=== PATIENT | female | born 1960 | race Caucasian/White ===

== ENCOUNTER 2023-04-03 12:26 | Emergency (ER) | payer OTHER, SELFPAY ==
[2023-04-03 12:36] VITALS: BP 204/122
--- NOTE | 2023-04-03 13:38 | ED.GENMED ---
Addendum entered and electronically signed by Fernando Ulrich DO 04/03/23 16:12:
Discussed with radiology. Discussed with neurosurgery. MRI reviewed by those specialists. MRI report reviewed. Neurosurgery recommends transfer to [facility]. Case was discussed with Dr. Mistry at [facility].
Excepted in transfer. Patient is currently stable.
Original Note:
History of Present Illness
General
Chief Complaint: Weakness
Source: patient and spouse
Exam Limitations: none
Time Seen by Provider: 04/03/23 13:03
Travel History
Have you had any contact with someone who has COVID-19?: No
Do you have any symptoms of coronavirus? Fever > 100 degrees, chills, cough, shortness of breath, sore throat, loss of taste or smell, muscle aches, or headache?: No
History of Present Illness
History of Present Illness:
62-year-old female who presents with progressive balance problems and difficulty using her arms. She states her right arm seems worse that she has difficulty writing and difficulty holding a cup of coffee. She states her symptoms started since
December but they were sick with influenza and suspected it was related to being sick. The patient states his symptoms have progressed over the last 2 weeks. She is having difficulty walking now. She has to hold on and always feels like she is on
a ship. 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 See attached CT report. Patient denies chest pain or shortness of breath. No trauma
Past History
Past History
ED Past Medical History: Other
ED Past Surgical History: Gynecological
Phy Exam
Physical Exam
Physical Exam:
CONSTITUTIONAL Patient alert and oriented to person, place and time. Well-appearing. Vital signs reviewed.
HEAD atraumatic, normocephalic.
EYES eyelids normal to inspection, Pupils equally round and reactive to light, Extraocular muscles intact, Conjunctiva normal, Sclera normal.
NECK normal range of motion, Trachea midline, no jugular venous distention.
RESPIRATORY CHEST No respiratory distress noted, Chest expansion equal, Bilateral breath sounds clear.
CARDIOVASCULAR regular rate and rhythm, Heart sounds normal.
ABDOMEN abdomen nontender, Bowel sounds normal. No distention.
BACK normal inspection, no obvious deformities
UPPER EXTREMITY range of motion normal, Motor strength normal, no cyanosis, no edema.
LOWER EXTREMITY range of motion normal, Motor strength normal, no cyanosis, no edema.
NEURO Speech normal, No focal motor deficits, Franklin coma scale 15, Memory normal, Cranial Nerves intact to screening exam. No pronator drift. She does have tremulousness and some mild ataxia to the right upper and right lower extremity with
some rigidity during exam
SKIN skin warm, dry, and normal in color.
PSYCHIATRIC patient oriented to person place and time, Normal affect.
Course
Orders/Labs/Results
Orders:
Orders
04/03/23 13:54
MRI Brain [MR Brain W/o & With Contrast] Urgent
Comment:
Reason For Exam: R cerebellar mass, RUE ataxia
Recent pill cam endoscopy?: No
04/03/23 14:00
Complete Blood Count/With Diff Urgent
Comprehensive Metabolic Panel Urgent
Abnormal Lab Results
04/03/23
14:00
MCHC 32.9 L g/dL
(33.0-37.0)
MPV 10.9 H fL
(7.4-10.4)
Absolute Lymphs (auto) 4.2 H 10^3/uL
(1.2-3.4)
Neutrophils % 31.6 L %
(42.2-75.2)
Lymphocytes % 57.2 H %
(20.5-51.1)
AST 40 H U/L
(14-36)
ALT 37 H U/L
(0-35)
04/03/23 14:00
04/03/23 14:00
Vital Signs
Initial and Last Documented VS:
Initial Vital Signs
Temp Pulse Resp BP Pulse Ox
98.1 F 83 18 204/122 97
04/03/23 12:36 04/03/23 12:36 04/03/23 12:36 04/03/23 12:36 04/03/23 12:36
Last Documented Vital Signs
Temp Pulse Resp BP Pulse Ox
98.1 F 83 18 204/122 97
04/03/23 12:36 04/03/23 12:36 04/03/23 12:36 04/03/23 12:36 04/03/23 12:36
MDM/Problems Addressed
MDM/Problems Addressed:
Brain mass
*Radiology
Radiology exam reviewed: preliminary read by ED provider (Cerebellar abnormality)
*Pulse Oximetry
Patient hypoxic: no
*Tent Finisher Interpretation
Rate: normal
Interpretation: normal
Rhythm: sinus
*Critical Care Note
Total Time (30-74mins, 75-104mins- exclusive of procedures): 30 minutes
Data Reviewed
Review of Other/Old Records Reveals: Radiology Studies (Outpatient CT scan from yesterday was reviewed showing a right cerebellar mass)
Source: patient and spouse
Further Testing Considered But Not Given:
Considered CT chest abdomen and pelvis to rule out metastatic lesion but will defer
Patient Management
Discussion with other providers: Mailroom Clerk (Case discussed with neurology as well as neurosurgery. Proceed with MRI)
ED Attending Note
-
Portions of this chart may have been created with voice recognition software.� Occasional wrong word or��sound alike� substitutions may have occurred due to the inherent limitations of voice recognition software.
Discharge Plan
Departure
Patient Disposition: Admit
Date of Disposition: 04/03/23
Time of Disposition: 15:27
Admit to: Med/Surg
Presentation/result/management discussed w/ accepting MD/DO: Hospitalist
Patient with high blood pressure during this ER visit?: Yes
Discharge Problem:
Cerebellar mass
Prescriptions:
No Action
acetaminophen [acetaminophen] 325 mg tablet
650 mg PO Q4HPRN PRN (Reason: mild pain) Qty: 1 0RF
ibuprofen 200 mg tablet
400 - 600 mg PO Q6HPRN PRN (Reason: moderate pain) Qty: 1 0RF
oxycodone 5 mg tablet
5 mg PO Q4HPRN PRN (Reason: breakthrough/severe pain) Qty: 7 0RF
Referrals:
Stacy Sommer CRNP [Family Provider] -
Interventions
Interventions:
*Risk Screen - Suicide Last Done: 04/03/23 12:36
*General Assessment Last Done: 04/03/23 12:36
*Neglect/Abuse Screening Last Done: 04/03/23 12:36
ED- Fall Risk Assessment Last Done: 04/03/23 13:06
*ED COVID-19 Vaccine History Last Done: 04/03/23 12:36
ED- Cardiac Assessment Last Done: 04/03/23 13:06
ED- Neurological Assessment Last Done: 04/03/23 13:06
ED- Pulmonary Assessment Last Done: 04/03/23 13:06
[2023-04-03 14:07] LABS: % Basophils 0.8 % (0-2); % Eosinophils 2.7 % (0-6); % Immature Granulocytes 0.3 % (0-0.5); % Lymphocytes 57.2 % (20.5-51.1); % Monocytes 7.4 % (1.7-9.3); % Neutrophils 31.6 % (42.2-75.2); Absolute Basophils 0.1 10^3/uL (0-0.2); Absolute Eosinophils 0.2 10^3/uL (0-0.7); Absolute Lymphocytes 4.2 10^3/uL (1.2-3.4); Absolute Monocytes 0.5 10^3/uL (0.1-0.6); Absolute Neutrophils 2.3 10^3/uL (1.4-6.5); Hematocrit 41.9 % (37.0-47.0); Hemoglobin 13.8 g/dL (12.0-16.0); Mean Corp Hgb Conc. 32.9 g/dL (33.0-37.0); Mean Corpuscular Hgb 28.3 pg (27.0-31.0); Mean Platelet Volume 10.9 fL (7.4-10.4); Nucleated Red Blood Cells % 0 %; Platelet Count 269 10^3/uL (130-400); Red Blood Cell Count 4.87 10^6/uL (4.20-5.40); Red Cell Dist. Width 13.2 % (11.5-14.5); White Blood Cell Count 7.3 10^3/uL (4.8-10.8)
[2023-04-03 14:28] LABS: ALT (SGPT) 37 U/L (0-35); AST (SGOT) 40 U/L (14-36); Albumin 4.3 g/dl (3.5-5.0); Alkaline Phosphatase 88 U/L (38-126); Blood Urea Nitrogen 14 mg/dl (7-17); Calcium 9.6 mg/dl (8.4-10.2); Carbon Dioxide 27 mmol/L (22-30); Chloride 104 mmol/L (98-107); Glucose 92 mg/dl (70-99); Potassium 4.4 mmol/L (3.5-5.1); Sodium 137 mmol/L (135-145); eGFR > 60.00
[2023-04-03 15:44] VITALS: BP 157/84
--- NOTE | 2023-04-03 16:09 | ED.GENMED ---
History of Present Illness
General
Chief Complaint: Weakness
Time Seen by Provider: 04/03/23 13:03
Travel History
Have you had any contact with someone who has COVID-19?: No
Do you have any symptoms of coronavirus? Fever > 100 degrees, chills, cough, shortness of breath, sore throat, loss of taste or smell, muscle aches, or headache?: No
Past History
Past History
ED Past Medical History: Other
ED Past Surgical History: Gynecological
Course
Orders/Labs/Results
Orders:
Orders
04/03/23 13:54
MRI Brain [MR Brain W/o & With Contrast] Urgent
Comment:
Reason For Exam: R cerebellar mass, RUE ataxia
Recent pill cam endoscopy?: No
04/03/23 14:00
Complete Blood Count/With Diff Urgent
Comprehensive Metabolic Panel Urgent
Abnormal Lab Results
04/03/23
14:00
MCHC 32.9 L g/dL
(33.0-37.0)
MPV 10.9 H fL
(7.4-10.4)
Absolute Lymphs (auto) 4.2 H 10^3/uL
(1.2-3.4)
Neutrophils % 31.6 L %
(42.2-75.2)
Lymphocytes % 57.2 H %
(20.5-51.1)
AST 40 H U/L
(14-36)
ALT 37 H U/L
(0-35)
04/03/23 14:00
04/03/23 14:00
Vital Signs
Initial and Last Documented VS:
Initial Vital Signs
Temp Pulse Resp BP Pulse Ox
98.1 F 83 18 204/122 97
04/03/23 12:36 04/03/23 12:36 04/03/23 12:36 04/03/23 12:36 04/03/23 12:36
Last Documented Vital Signs
Temp Pulse Resp BP Pulse Ox
98.1 F 76 18 157/84 97
04/03/23 12:36 04/03/23 15:44 04/03/23 12:36 04/03/23 15:44 04/03/23 15:44
ED Attending Note
-
Portions of this chart may have been created with voice recognition software.� Occasional wrong word or��sound alike� substitutions may have occurred due to the inherent limitations of voice recognition software.
Discharge Plan
Departure
Patient Disposition: Acute Care Hospital
Date of Disposition: 04/03/23
Time of Disposition: 15:27
Admit to: Med/Surg
Patient with high blood pressure during this ER visit?: Yes
Discharge Problem:
Cerebellar mass
Prescriptions:
No Action
cholecalciferol (vitamin D3) 1,250 mcg (50,000 unit) capsule
1,250 mcg PO SUTH
Airborne Gummy 250-11.66 mg Tablet,Chewable
2 tab PO DAILY
Probiotic
2 gummy PO DAILY
Referrals:
Stacy Sommer CRNP [Family Provider] -
Interventions
Interventions:
*Risk Screen - Suicide Last Done: 04/03/23 12:36
*General Assessment Last Done: 04/03/23 12:36
*Neglect/Abuse Screening Last Done: 04/03/23 12:36
ED- Fall Risk Assessment Last Done: 04/03/23 13:06
*ED COVID-19 Vaccine History Last Done: 04/03/23 12:36
ED- Cardiac Assessment Last Done: 04/03/23 13:06
ED- Neurological Assessment Last Done: 04/03/23 13:06
ED- Pulmonary Assessment Last Done: 04/03/23 13:06
[2023-04-03 17:25] VITALS: BMI 48.0
[2023-04-03 19:36] VITALS: BP 183/96
== END 2023-04-03 19:52 | disposition short-term general hospital (02) ==
LOC: EMR 12:26
PROVIDERS: EMERGENCY PHYSICIAN Emergency Medicine; FAMILY PHYSICIAN Nurse Practitioner Family
DX: G93.9 Disorder of brain, unspecified (principal); R03.0 Elevated blood-pressure reading, without diagnosis of hypertension
CPT/HCPCS: 99291; 70553; 80053; 85025; A9575

== ENCOUNTER 2023-05-03 19:10 | Inpatient (IN) | payer OTHER, SELFPAY ==
[2023-05-03] VITALS (9 sets, daily range): BP systolic 97–197; BP diastolic 53–102; BMI 46.8; BMI 46.1
[2023-05-03 14:55] LABS: % Basophils 0.9 % (0-2); % Eosinophils 6.1 % (0-6); % Immature Granulocytes 0.1 % (0-0.5); % Monocytes 8.9 % (1.7-9.3); Absolute Basophils 0.1 10^3/uL (0-0.2); Absolute Eosinophils 0.5 10^3/uL (0-0.7); Absolute Lymphocytes 3.9 10^3/uL (1.2-3.4); Absolute Monocytes 0.7 10^3/uL (0.1-0.6); Absolute Neutrophils 2.7 10^3/uL (1.4-6.5); Hematocrit 39.3 % (37.0-47.0); Mean Corp Hgb Conc. 33.1 g/dL (33.0-37.0); Mean Corpuscular Hgb 28.6 pg (27.0-31.0); Mean Corpuscular Volume 86.6 fL (81.0-99.0); Mean Platelet Volume 10.5 fL (7.4-10.4); Nucleated Red Blood Cells % 0 %; Platelet Count 252 10^3/uL (130-400); Red Blood Cell Count 4.54 10^6/uL (4.20-5.40); Red Cell Dist. Width 12.9 % (11.5-14.5); White Blood Cell Count 7.9 10^3/uL (4.8-10.8)
[2023-05-03 15:08] LABS: ALT (SGPT) 169 U/L (0-35); AST (SGOT) 120 U/L (14-36); Albumin 4.3 g/dl (3.5-5.0); Alkaline Phosphatase 106 U/L (38-126); Blood Urea Nitrogen 16 mg/dl (7-17); Calcium 9.8 mg/dl (8.4-10.2); Carbon Dioxide 26 mmol/L (22-30); Chloride 105 mmol/L (98-107); Estimated Creatinine Clearance 104 ml/min; Glucose 113 mg/dl (70-99); Potassium 4.1 mmol/L (3.5-5.1); Sodium 138 mmol/L (135-145); Total Bilirubin 0.8 mg/dl (0.2-1.3); eGFR > 60.00
--- NOTE | 2023-05-03 15:21 | ED.GENMED ---
History of Present Illness
General
Chief Complaint: Weakness
Source: patient, records and spouse
Exam Limitations: none
Time Seen by Provider: 05/03/23 14:21
Nursing documentation reviewed up to this point in time: agreed with
Travel History
Have you had any contact with someone who has COVID-19?: No
Do you have any symptoms of coronavirus? Fever > 100 degrees, chills, cough, shortness of breath, sore throat, loss of taste or smell, muscle aches, or headache?: No
History of Present Illness
History of Present Illness:
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
over the past 4 days; the symptoms in the setting of recent flulike illness. Patient was notably seen in this emergency room last month presented reportedly 2-week history of with difficulty with her balance, right arm weakness/clumsiness. Found
to have cystic mass in the right cerebellum on CT ultimately had an MRI and ultimately after consultation with neurosurgery was transferred to [facility] and she was admitted there from 05/01 until 05/08; patient says she was told that
not only did she have a cystic mass which she also had tiny area of hemorrhage; she says that she was ultimately discharged with plan for physical therapy as an outpatient and that symptoms had improved significantly during her hospitalization at
[place].
For the past 2 weeks patient says she has been ill she says that she has had flulike illness that she describes congestion, cough, fatigue. She says that it has been a hacking but nonproductive cough. She has not had any shortness of breath. No
chest pain. Denies fever. She says she tested her cell for COVID and it was negative. Saturday she said she had some nausea and vomiting associated with this hacking cough. About 4 days ago in the setting of this viral illness she says that she
had return of these symptoms that she initially presented for in March that she describes feeling weakness in the right arm and the right leg. She says she feels clumsy with her extremities on the right. She says that she has been having these
episodes lasting usually about 30 seconds at a time where she has involuntary 'tremors' of her right leg and even her right arm occasionally. She says that she has had worsening headache over that period of time with a frontal headache which seems
to improve with decongestants but also an occipital headache which is not responding to [id number] treatments. She says that she has a visiting nurse that came out today and after discussion with visiting nurse and her team at [facility]
[place] she was ultimately referred to the emergency room to be assessed.
Past History
Past History
ED Past Medical History: Other
ED Past Surgical History: Gynecological
Review of Systems
Review of Systems
All Other Systems: ROS reviewed and negative except as documented in HPI and ROS
Constitutional: Reports fatigue; Denies fever or chills
EENT: Reports runny nose; Denies sore throat
Respiratory: Reports cough; Denies trouble breathing
Cardiac: Denies chest pain, diaphoresis or palpitations
ABD/GI: Reports nausea and vomiting; Denies abdominal pain or diarrhea
: Denies flank pain
Musculoskeletal: Denies neck pain or back pain
Neurological: Reports dizzy, weakness and other ('tremors'); Denies headache or numbness
Phy Exam
Physical Exam
Physical Exam:
General: Awake, alert, oriented x3; no acute distress
Head: Normocephalic, atraumatic
Eyes: Conjunctiva normal, EOMI, pupils equal round reactive to light bilateral
Throat: Airway intact, handling secretions
Neck: Trachea midline, supple without meningismus
Lungs: Clear to auscultation bilaterally, no wheezing, rales, rhonchi
Heart: Regular rate and rhythm, no murmurs, gallops, or rubs
Abd: Soft, non distended, nontender
Neuro: Cranial nerves intact 2 through 12, speech is fluid with no dysarthria, no limb ataxia but she does have some hesitancy on finger-nose with the right upper extremity; she has some 4+/5 weakness right upper and lower extremity compared to left
5/5; sensory exam intact
Skin: no rash
Extremities: Warm and well-perfused
Scores
NIH Stroke Score
Level of Consciousness: 0 - Alert
LOC Questions: 0-Answers both correctly
LOC Commands: 0-Performs both correctly
Best Horizontal Gaze: 0-Normal
Visual [place]: 0=Normal, no visual loss
Facial Palsy: 0=Normal, symmetrical
Motor - Right Arm: 1=Drift < 10 seconds
Motor - Left Arm: 0=No drift 10 seconds
Motor - Right Le-Drift < 5 seconds
Motor - Left Le-No drift 5 seconds
Limb Ataxia: 0-Absent
Sensation: 0-Normal
Best Language: 0-No aphasia
Dysarthria: 0-Normal
Extinction and Inattention: 0-No abnormality
Total Score:: 2
Thrombolytic Contraindication
Inclusion and Exclusion criteria reviewed: Yes
Reasons for NON-Tx with Thrombolytics ABSOLUTE Exclusions: Greater than 4.5 hrs from onset of sxs
Heart Failure Risk
Heart Failure Risk Score: Not Applicable
Heart Score for Chest Pain Patients
STEMI patient?: Not applicable
Withdrawal Assessment of Alcohol
Withdrawal Assessment Completed?: Not applicable
Course
Orders/Labs/Results
Orders:
Orders
05/03/23 14:25
CT Head W/o Iv Contrast Urgent
Comment:
Reason For Exam: headache
05/03/23 14:48
Complete Blood Count/With Diff Urgent
Comprehensive Metabolic Panel Urgent
05/03/23 15:16
CR Chest Portable - 1 View Urgent
Comment:
Reason For Exam: cough
Reason Study Needs to be Portable: Unable to Transport
05/03/23 15:25
COVID-19 Antigen Urgent
Source: Nasal Swab
Influenza A+B Rapid Molecular Urgent
MILLIE Source: Nasal Swab
Specimen Description:
05/03/23 15:31
Ipratropium/Albuterol Sulfate [Duoneb] 3 ml INH R NOW STA
05/03/23 15:32
0.9% Sodium Chloride 1000 ml [Nss] 1,000 ml IV BOLUS
Ketorolac [Toradol] 15 mg IV NOW STA
05/03/23 15:33
NEUROLOGY CONSULT Urgent
Consulting Provider: Lisa Owens
Was physician already notified: Yes
05/03/23 17:31
[id number] Enzyme [S] Routine
CRP [C-Reactive Protein] Routine
D-Dimer Routine
ESR [Erythrocyte Sed Rate] Routine
Magnesium Routine
MRI Brain [MR Brain With Contrast] Routine
Comment:
Reason For Exam: R cystic cerebellar mass
OK for patient to be off Cardiac Monitoring for MRI: No
Recent pill cam endoscopy?: No
05/03/23 20:00
Topiramate [Topamax] 25 mg PO BID
Abnormal Lab Results
05/03/23
14:48
MPV 10.5 H fL
(7.4-10.4)
Absolute Lymphs (auto) 3.9 H 10^3/uL
(1.2-3.4)
Absolute Monos (auto) 0.7 H 10^3/uL
(0.1-0.6)
Neutrophils % 35.0 L %
(42.2-75.2)
Eosinophils % 6.1 H %
(0-6)
Glucose 113 H mg/dl
(70-99)
AST 120 H U/L
(14-36)
ALT 169 H U/L
(0-35)
05/03/23 14:48
05/03/23 14:48
Vital Signs
Initial and Last Documented VS:
Initial Vital Signs
Temp Pulse Resp BP Pulse Ox
36.8 C 85 18 197/102 96
05/03/23 14:10 05/03/23 14:10 05/03/23 14:10 05/03/23 14:10 05/03/23 14:10
Last Documented Vital Signs
Temp Pulse Resp BP Pulse Ox
36.8 C 83 19 108/62 96
05/03/23 14:10 05/03/23 16:00 05/03/23 16:00 05/03/23 16:00 05/03/23 15:00
MDM/Problems Addressed
Differential Diagnosis Includes:
Right-sided weakness, 'tremors: Seizures, intracranial hemorrhage, stroke
Cough/flulike illness: URI, pneumonia, bronchitis
MDM/Problems Addressed:
62-year-old female presents for evaluation of right-sided weakness, 'tremors' and clumsiness over the past 4 days�similar to symptoms a month ago when she was diagnosed with right cerebellar lesion and patient seems to think that she was told there
was some associated hemorrhage although not seen on imaging review of her imaging. She has also had flulike illness for the past 2 weeks. She arrived was hypertensive blood pressure normalized by my assessment and the rest of her vitals are within
normal limits. Physical exam as above. She was taken for stat CT head which showed no acute hemorrhage appeared stable from prior. Labs sent off including a CBC and a CMP; will send viral swabs. Will check chest x-ray. Will treat the DuoNeb as
she does have a hacking cough here today. Will provide some fluids and Toradol for headaches. Case discussed with neurology for consultation. Reassess after the above.
CT head stable. Discussed with neurology who assessed patient I think likely symptoms worsening in the setting of her viral illness; recommended MRI, BP control. I did place a call to the neurosurgery team at [place] to discuss: They clarified workup
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 They agree this is likely recrudescence of her symptoms in the setting of this acute
illness. No need for emergent neurosurgical intervention and no indication for transfer. Nevertheless given her new/worse neurologic deficits will admit for serial exams and observation, MRI as recommended per neurology and blood pressure control.
Discussed with hospitalist for admission.
Chronic conditions affecting care:
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
Acute Exacerbation and/or Progression of Chronic Illness:
Acutely hypertensive normalized without intervention continue to monitor but no additional antihypertensive indicated at present
Acute Exacerbation and/or Progression of Chronic Illness: HTN
*Radiology
Radiology exam reviewed: preliminary read by ED provider and radiology read reviewed
*Pulse Oximetry
Patient hypoxic: no
*Critical Care Note
Total Time (30-74mins, 75-104mins- exclusive of procedures): Not Applicable
Data Reviewed
Review of Other/Old Records Reveals: Labs, Records, Radiology Studies and Discharge Summary
Source: patient, records and spouse
Patient Management
Discussion with other providers: Circular Clerk (Discussed with neurology), Radiologist (Discussed with radiology) and Other (Discussed with neurosurgery at [facility])
ED Attending Note
-
Portions of this chart may have been created with voice recognition software.� Occasional wrong word or��sound alike� substitutions may have occurred due to the inherent limitations of voice recognition software.
Discharge Plan
Departure
Prescriptions:
No Action
cholecalciferol (vitamin D3) 1,250 mcg (50,000 unit) capsule
1,250 mcg PO SUTH@0800
Probiotic
2 gummy PO DAILY
acetaminophen [Tylenol Extra Strength] 500 mg Tablet
1,000 mg PO BIDPRN PRN (Reason: headache)
benzonatate 100 mg Capsule
100 mg PO TID PRN (Reason: cough)
losartan 25 mg Tablet
25 mg PO HS
gabapentin 300 mg Capsule
300 mg PO HS
albuterol sulfate 90 mcg/actuation Hfa Aerosol Inhaler
2 puff INHALATION R Q6HPRN PRN (Reason: sob)
amoxicillin-pot clavulanate 875-125 mg Tablet
1 tab PO BID
Patient Comments:
05/03/2023, pt. filled this med. on 04/26/2023 and is instructed to take one tablet BID for 7 days; pt. took last dose of this abx this morning and completed this treatment.
rosuvastatin 5 mg Tablet
5 mg PO HS
Referrals:
Lyubov Alegria MD [Family Provider] -
Interventions
Interventions:
*Risk Screen - Suicide Last Done: 05/03/23 14:43
*General Assessment Last Done: 05/03/23 14:10
*Neglect/Abuse Screening Last Done: 05/03/23 14:43
*ED COVID-19 Vaccine History Last Done: 05/03/23 14:10
ED- Cardiac Assessment Last Done: 05/03/23 14:43
ED- Neurological Assessment Last Done: 05/03/23 14:43
ED- Pulmonary Assessment Last Done: 05/03/23 14:43
[2023-05-03] MEDS: DUONEB 3 ML INH (15:38)
[2023-05-03] MEDS: TORADOL 15 MG IV (15:38)
[2023-05-03] MEDS: NSS 1000 IV (15:39)
[2023-05-03 16:13] LABS: COVID-19 Antigen Negative (Negative)
--- NOTE | 2023-05-03 16:59 | CON.NEURO ---
Consultation
Order
Date of Consultation: 05/03/23
Requesting Provider: Dr. Brenda Darling
Reason for Consult: Right-sided dysmetria
CC: none
HPI: This is a 62-year-old right-handed female accompanied immunocompetent woman who presented to [facility] on May 03, 2023 with worsening of right-sided dysmetria at her neurologist request. According to the patient she has been
ill and treated for common cold over the last week. She noted that that her handwriting has degraded this week and she needed to use the left hand to eat on and off despite of ongoing PT and OT. Daniela admits to have intermittent expressive aphasia
worse with stress . The patient admits to ongoing moderate to severe headache, worse with Valsalva with associated nausea and emesis. No reports of visual or sensory deficits, vertigo, abnormal movements.
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 Ms. Anaya has been using a walker since and has had difficulty with tasks requiring dexterity, such as typing on a laptop and
using utensils. She reports that her handwriting has degraded this week.
ER VS: 204/122, heart rate�82, afebrile
Labs: Normal WBCs, platelets, sodium, creatinine, glucose�113. negative SARS-Cov-2
CT head-1.6 cm cystic lesion again seen in the right cerebellum
PMH: HTN, DLD, IGT, OA, LS DJD, BMI 46
PSH: cholecystectomy, bone spurs, Hassan's neuroma, sigmoidectomy, tubal ligation, bilateral rotator cuff repair, bilateral arthroscopic knee surgery, left Achilles tendon repair.
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
FH: Unremarkable to current presentation
All: Levaquin, metformin, morphine
ROS:Constitutional: Negative. Negative for chills, fever and unexpected weight change.
HENT: Negative for ear pain, hearing loss, tinnitus and trouble swallowing.
Eyes: Negative. Negative for photophobia, pain and visual disturbance.
Respiratory: Negative for cough, choking and shortness of breath.
Cardiovascular: Negative for chest pain, palpitations and leg swelling.
Gastrointestinal: Positive for vomiting
Endocrine: Negative. Negative for cold intolerance.
Genitourinary: Negative for dysuria, flank pain and urgency.
Musculoskeletal: Negative for back pain, gait problem, neck pain and neck stiffness.
Skin: Negative for rash.
Allergic/Immunologic: Negative. Negative for immunocompromised state.
Neurological: Positive for right-sided incoordination, headache
Psychiatric/Behavioral: Negative for behavioral problems, confusion and hallucinations.
General: Well developed. In no acute distress.
Cardio: Regular rate and rhythm without murmur. Extremities are without cyanosis or edema.
Neuro:
Mental Status: Alert, oriented to person, place, and date. Intermittent expressive aphasia (when anxious only) normal attention and recall. Good fund of knowledge. Follows complex requests across the midline. Comprehension, naming, and repetition
intact. Immediate and delayed recall 3/3.
Cranial Nerves: Pupils are equally round and reactive to light. EOMs full. Visual peña full to confrontation. No ptosis. No nystagmus. V1-V3 intact to light touch and pinprick bilaterally, symmetric. Face symmetric. Normal hearing AU. The
palate elevated well. SCMs and traps 5/5. Tongue midline. No dysarthria.
Motor: Normal bulk and tone. No pronator or arm drift. Strength 5/5 throughout. No clonus.
Reflexes: Limited due to body habitus.
Sensory: Normal proprioception at the toes
Coordination: Mild right dysmetria no tremors, clinical
Gait: deferred
Assessment and Plan:
I. R cerebellar cystic mass. Differential diagnose with a mild mass effect on the fourth ventricle. Clinically worse due to concurrent medical illness. Differential diagnosis includes ependymal vs hytatid cyst.
II. �R cerebellar developmental venous anomaly
III. Headache with increased ICP
-Fall precautions
-Strict BP control
-Start Topamax 25 mg twice daily with titration by 25 mg every 3-5 days as tolerated
-Please check magnesium, D-dimers, ESR, CRP, BLOSSOM
-Brain MRI with gale
-Please obtain medical records from [facility] for review.
I personally reviewed all radiology and labs along with past medical records pertinent to current medical problems. Total time spent in patient care is 60 minutes.
Thank you for allowing us to participate in the care of this patient. Please do not hesitate to contact us with any questions or concerns.
Subjective/Objective
Subjective Data
Date of Service: May 03, 2023
Objective Data
Vital Signs
Temp Pulse Resp BP Pulse Ox
36.8 C 83 19 108/62 96
05/03/23 14:10 05/03/23 16:00 05/03/23 16:00 05/03/23 16:00 05/03/23 15:00
Lab Results
05/03/23 14:48
05/03/23 14:48
Sodium 138 mmol/L (135-145) 05/03/23 14:48
Potassium 4.1 mmol/L (3.5-5.1) 05/03/23 14:48
BUN 16 mg/dl (7-17) 05/03/23 14:48
Glucose 113 mg/dl (70-99) H 05/03/23 14:48
Calcium 9.8 mg/dl (8.4-10.2) 05/03/23 14:48
Patient Allergies
morphine Allergy (Mild, Verified 05/03/23 14:19)
Itching
Medications
-
Home Medications
Medication Instructions Recorded
Probiotic 2 gummy PO DAILY probiotic 04/03/23
cholecalciferol (vitamin D3) 1,250 1,250 mcg PO SUTH@0800 Supplement 04/03/23
mcg (50,000 unit) capsule
acetaminophen 500 mg tablet 1,000 mg PO BIDPRN PRN headache 05/03/23
(Tylenol Extra Strength)
albuterol sulfate 90 mcg/actuation 2 puff inhalation R Q6HPRN PRN sob 05/03/23
aerosol inhaler
amoxicillin 875 mg-potassium 1 tab PO BID 05/03/23
clavulanate 125 mg tablet
benzonatate 100 mg capsule 100 mg PO TID PRN cough 05/03/23
gabapentin 300 mg capsule 300 mg PO HS pain 05/03/23
losartan 25 mg tablet 25 mg PO HS Blood Pressure 05/03/23
rosuvastatin 5 mg tablet 5 mg PO HS high cholesterol 05/03/23
Vital Signs and Labs
-
Vital Signs and Labs:
Vital Signs
Temp Pulse Resp BP Pulse Ox
36.8 C 83 19 108/62 96
05/03/23 14:10 05/03/23 16:00 05/03/23 16:00 05/03/23 16:00 05/03/23 15:00
Lab Results
05/03/23 14:48
05/03/23 14:48
Sodium 138 mmol/L (135-145) 05/03/23 14:48
Potassium 4.1 mmol/L (3.5-5.1) 05/03/23 14:48
BUN 16 mg/dl (7-17) 05/03/23 14:48
Glucose 113 mg/dl (70-99) H 05/03/23 14:48
Calcium 9.8 mg/dl (8.4-10.2) 05/03/23 14:48
Home Medications
-
Home Medications
Probiotic 2 gummy PO DAILY probiotic 04/03/23
cholecalciferol (vitamin D3) 1,250 mcg (50,000 unit) capsule 1,250 mcg PO SUTH@0800 Supplement 04/03/23
acetaminophen 500 mg tablet (Tylenol Extra Strength) 1,000 mg PO BIDPRN PRN headache 05/03/23
albuterol sulfate 90 mcg/actuation aerosol inhaler 2 puff inhalation R Q6HPRN PRN sob 05/03/23
amoxicillin 875 mg-potassium clavulanate 125 mg tablet 1 tab PO BID 05/03/23
benzonatate 100 mg capsule 100 mg PO TID PRN cough 05/03/23
gabapentin 300 mg capsule 300 mg PO HS pain 05/03/23
losartan 25 mg tablet 25 mg PO HS Blood Pressure 05/03/23
rosuvastatin 5 mg tablet 5 mg PO HS high cholesterol 05/03/23
[2023-05-03 18:13] LABS: Erythrocyte Sed Rate 41 mm/hour (0-20)
[2023-05-03 18:17] LABS: D-Dimer 0.58 ug/mlFEU (0.00-0.50)
--- NOTE | 2023-05-03 18:58 | HPS.HSE ---
Family Physician
-
Family Physician: Lyubov Alegria MD
Chief Complaint
-
right sided weakness
History of Present Illness
62-year-old female past medical history of hypertension, recently diagnosed cystic mass in the right cerebellum in March 2023 presented to the emergency room for right-sided weakness and tremors in the right arm and leg over the past 4 days.
Patient recently came to emergency room last month with 2-week history of difficulty with balance, right arm weakness and clumsiness. She was found to have cystic mass in right cerebellum with tiny area of hemorrhage and was ultimately transferred
to [facility] where she was admitted there from 05/01 to 05/08. She was discharged with plan for physical therapy and symptoms significantly improved during her hospitalization at [place].
For the past 2 weeks she has been having flulike illness with congestion, nonproductive cough and fatigue. Denies any shortness of breath. No chest pain or fever. Does have some back pain. She tested for COVID which was negative. 3 days ago she
had nausea and vomiting associated with cough. 4 days ago she had return of weakness and clumsiness in the right arm and right leg with spasms in the right leg. Spasms last 15 seconds at a time. She has been having worsening headache with frontal
headache that improves with decongestions as well as a posterior headache not responding to [id number] treatments.
Denies smoking. Drinks alcohol occasionally
Medical History
Past Medical History
Past Medical History: Reports Other ( hypertension, recently diagnosed cystic mass in the right cerebellum in March 2023, neuropathy, obesity )
Past Surgical History: Reports None
Social History
Tobacco: Non-smoker
Alcohol: Occasional
Drug: None
Family History
Family History: Not pertinent
Allergies / Home Medications
Allergies reflects when Allergies were last updated in [facility].
Home Medications with original date entered in [facility]
Allergy/Medication List:
Allergies
Allergy/AdvReac Type Severity Reaction Status Date / Time
morphine Allergy Itching Verified 05/03/23 17:50
Home Medications
Probiotic 2 gummy PO DAILY probiotic 04/03/23
cholecalciferol (vitamin D3) 1,250 mcg (50,000 unit) capsule 1,250 mcg PO SUTH@0800 Supplement 04/03/23
acetaminophen 500 mg tablet (Tylenol Extra Strength) 1,000 mg PO BIDPRN PRN headache 05/03/23
albuterol sulfate 90 mcg/actuation aerosol inhaler 2 puff inhalation R Q6HPRN PRN sob 05/03/23
amoxicillin 875 mg-potassium clavulanate 125 mg tablet 1 tab PO BID 05/03/23
benzonatate 100 mg capsule 100 mg PO TID PRN cough 05/03/23
gabapentin 300 mg capsule 300 mg PO HS pain 05/03/23
losartan 25 mg tablet 25 mg PO HS Blood Pressure 05/03/23
rosuvastatin 5 mg tablet 5 mg PO HS high cholesterol 05/03/23
Review of Systems
-
History Source: Patient
A 12 point ROS was completed and negative except as noted: Yes
Constitutional: Reports No Symptoms
EENT: Reports No Symptoms
Respiratory: Reports No Symptoms
Cardiac: Reports No Symptoms
Abdomen/GI: Reports No Symptoms
: Reports No Symptoms
Musculoskeletal: Reports No Symptoms
Skin: Reports No Symptoms
Neurological: Reports See HPI
Endocrine: Reports No Symptoms
Hematologic/Lymphatic: Reports No Symptoms
Psych: Reports No Symptoms
Physical Exam
Vital Signs
Vital Signs
Temp Pulse Resp BP Pulse Ox
98.3 F 83 16 97/65 96
05/03/23 14:10 05/03/23 18:00 05/03/23 18:00 05/03/23 18:00 05/03/23 15:00
Physical Exam
General: Well Developed, Well Nourished and No Apparent Distress
HEENT: NormoCephalic, Moist mucous membranes and Atraumatic
Respiratory: Clear
Cardiac: S1/S2 and Regular Rhythm; No Murmur or Rub
GI: Soft, Non Tender, Non Distended and Normal Bowel Sounds; No Organomegaly
Rectal: Deferred by Provider
Musculoskeletal: No Clubbing, No Cyanosis and No Edema
Skin: No Rash
Neuro: Nonfocal/grossly intact
Laboratory Results
-
05/03/23 14:48
05/03/23 14:48
Laboratory Results
Total Bilirubin 0.8 mg/dl (0.2-1.3) 05/03/23 14:48
AST 120 U/L (14-36) H 05/03/23 14:48
ALT 169 U/L (0-35) H 05/03/23 14:48
Alkaline Phosphatase 106 U/L (38-126) 05/03/23 14:48
Data Reviewed
-
Lab Data: Labs Reviewed by me
Old Records: Reviewed
Impression/Plan
-
IMPRESSION:
PLAN:
# Cystic lesion of right cerebellum with mild mass effect on the fourth ventricle
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
-CT scan today shows no evidence of intracranial hemorrhage, unchanged from prior imaging
-ER spoke with neurosurgery at [place] and patient is not at risk for hemorrhage and surgery would not be recommended
-Neurology following and recommended strict blood pressure control,
-Topamax 25 mg twice daily with up titration as tolerated
-Check magnesium, D-dimer, ESR, CRP, BLOSSOM
-Check brain MRI
-Obtain records from [facility]
#Recent upper respiratory infection with postviral cough/postnasal drip cough
-Completed 1 week course of Augmentin today
-Chest x-ray negative
-COVID-negative, influenza negative
-Continue benzonatate
# Transaminitis possibly secondary to Augmentin
-Continue to monitor
Essential hypertension
-Continue losartan
Hypercholesterolemia
-Continue statin
Chronic neuropathy
-Continue gabapentin
Obesity
Full code
DVT prophylaxis SCDs
Regular diet
[2023-05-03] MEDS: TOPAMAX 25 MG PO (19:12)
--- NOTE | 2023-05-03 21:14 | PTCARENOTE ---
Patient arrived from ED via stretcher, ambulated from stretcher to bed with assist of one person and walker. Patient is awake, alert and oriented, wearing glasses. Tremors noted to RUE and slight slurring and stuttering noted on arrival. Patient
denies any pain at this time. Unsteady and weak on feet, does well once up and using walker for assistance with ambulation. Initiated on nutritional yeast supervisor #[id number] -- SR. Call piedra placed within reach, patient understands use of call piedra and will ring
for assistance. Will monitor.
[2023-05-03] MEDS: COZAAR 25 MG PO (22:23)
[2023-05-03] MEDS: CRESTOR 5 MG PO (22:23)
[2023-05-03] MEDS: NEURONTIN 300 MG PO (22:23)
[2023-05-03] MEDS: TESSALON PERLES 100 MG PO (22:30)
--- NOTE | 2023-05-03 22:30 | PTCARENOTE ---
Patient BP on arrival to unit elevated 157/87. Provided patient with nighttime dose of losartan as ordered, see APR. BP rechecked at 132/69 with HR 83. Patient with no complaints at this time, call piedra within reach. Will monitor.
[2023-05-04] MEDS: TYLENOL 650 MG PO ×2 (02:48→16:55)
[2023-05-04 03:00] VITALS: BP 119/77
[2023-05-04 06:23] LABS: % Eosinophils 6.4 % (0-6); % Immature Granulocytes 0.3 % (0-0.5); % Lymphocytes 53.2 % (20.5-51.1); % Monocytes 8.5 % (1.7-9.3); % Neutrophils 30.6 % (42.2-75.2); Absolute Basophils 0.1 10^3/uL (0-0.2); Absolute Eosinophils 0.5 10^3/uL (0-0.7); Absolute Lymphocytes 3.8 10^3/uL (1.2-3.4); Absolute Monocytes 0.6 10^3/uL (0.1-0.6); Absolute Neutrophils 2.2 10^3/uL (1.4-6.5); Hematocrit 38.4 % (37.0-47.0); Hemoglobin 12.2 g/dL (12.0-16.0); Mean Corp Hgb Conc. 31.8 g/dL (33.0-37.0); Mean Corpuscular Hgb 28.2 pg (27.0-31.0); Mean Corpuscular Volume 88.9 fL (81.0-99.0); Mean Platelet Volume 10.8 fL (7.4-10.4); Nucleated Red Blood Cells % 0 %; Platelet Count 229 10^3/uL (130-400); Red Blood Cell Count 4.32 10^6/uL (4.20-5.40); Red Cell Dist. Width 12.9 % (11.5-14.5); White Blood Cell Count 7.1 10^3/uL (4.8-10.8)
[2023-05-04 06:49] LABS: ALT (SGPT) 137 U/L (0-35); AST (SGOT) 78 U/L (14-36); Alkaline Phosphatase 98 U/L (38-126); Blood Urea Nitrogen 15 mg/dl (7-17); Calcium 9.3 mg/dl (8.4-10.2); Carbon Dioxide 26 mmol/L (22-30); Chloride 107 mmol/L (98-107); Estimated Creatinine Clearance 93 ml/min; Glucose 104 mg/dl (70-99); Potassium 4.4 mmol/L (3.5-5.1); Sodium 139 mmol/L (135-145); Total Bilirubin 0.8 mg/dl (0.2-1.3); Total Protein 7.3 g/dl (6.3-8.2); eGFR > 60.00
[2023-05-04 07:00] VITALS: BP 121/80
[2023-05-04] MEDS: TOPAMAX 25 MG PO ×2 (08:23→21:21)
[2023-05-04] MEDS: TESSALON PERLES 100 MG PO ×2 (08:27→16:59)
[2023-05-04 11:00] VITALS: BP 121/74
--- NOTE | 2023-05-04 11:01 | W.PN.HOSP.TC ---
Today's Communication/Plan
-
MRI
mucus clearing techniques
Assessment / Plan
Assessment / Plan
# Cystic lesion of right cerebellum with mild mass effect on the fourth ventricle
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
-CT scan today shows no evidence of intracranial hemorrhage, unchanged from prior imaging
-ER spoke with neurosurgery at [place] and patient is not at risk for hemorrhage and surgery would not be recommended
-Neurology following and recommended strict blood pressure control,
-Topamax 25 mg twice daily with up titration as tolerated
-d-dimer negative for patient's age
-Check brain MRI
-Obtain records from [facility]
#Recent upper respiratory infection with postviral cough/postnasal drip cough
-Completed 1 week course of Augmentin 05/02
-Chest x-ray negative
-COVID-negative, influenza negative
-duonebs, mucinex, acapella
-Continue benzonatate - but limit use can cause sedation
# Transaminitis possibly secondary to Augmentin
-Continue to monitor
-improving
Essential hypertension
-Continue losartan
Hypercholesterolemia
-Continue statin
Chronic neuropathy
-Continue gabapentin
Obesity
Full code
DVT prophylaxis SCDs
Regular diet
Anticipated Discharge: 24 - 48 hours
Subjective/Interval History
-
Date of Service: May 04, 2023
patient states cough improving and she feels strength is mildly improved this morning
Objective Data
-
Labs:
Laboratory Results
05/04/23
06:00
WBC 7.1
Hgb 12.2
Hct 38.4
Plt Count 229
Sodium 139
Potassium 4.4
Chloride 107
Carbon Dioxide 26
BUN 15
Creatinine 1.0
Glucose 104 H
Calcium 9.3
Total Bilirubin 0.8
AST 78 H
ALT 137 H
Alkaline Phosphatase 98
Vital Signs:
Vital Signs
Temp Pulse Resp BP Pulse Ox
97.9 F 72 18 121/80 95
05/04/23 07:00 05/04/23 07:00 05/04/23 07:00 05/04/23 07:00 05/04/23 07:00
I&O
05/03/23 05/04/23 05/05/23
06:59 06:59 06:59
Intake Total 600 / 600
Balance 600 / 600
Review of Systems
-
History Source: Patient
All other systems: Reviewed and negative
Physical Exam
-
General: No Apparent Distress and Obese
HEENT: PERRLA
Respiratory: Clear to Auscultation; Negative Wheezes
Cardiac: Regular Rhythm and S1/S2
GI: Soft and Nontender
Musculoskeletal: No Edema
Skin: Warm and Dry; Negative Rash
Neuro: AO x 3
Psych: Calm
Data Reviewed
-
Diagnostic Radiology: Report Reviewed by me
Labs: Labs Reviewed by me
[2023-05-04] MEDS: DUONEB 3 ML INH ×3 (11:40→18:30)
[2023-05-04] MEDS: MUCINEX 600 MG PO ×2 (11:49→21:22)
--- NOTE | 2023-05-04 12:00 | W.PN.NEURO.1 ---
Today's Communication / Plan
-
.
Subjective/Objective
Subjective Data
Date of Service: May 04, 2023
Ms. Anaya continues to have cough. Headache as well as right hand dysmetria has been stable. No reports of change in vision.
She has been normotensive and afebrile.
Brain MRI is pending.
ESR�41, CRP�25.7, D dimers�0.58 (0�0 0.50).
PMH: HTN, DLD, IGT, OA, LS DJD, BMI 46, KYLE(CPAP was declined)
PSH: cholecystectomy, bone spurs, Hassan's neuroma, sigmoidectomy, tubal ligation, bilateral rotator cuff repair, bilateral arthroscopic knee surgery, left Achilles tendon repair.
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
FH: Unremarkable to current presentation
All: Levaquin, metformin, morphine
ROS:Constitutional: Negative. Negative for chills, fever and unexpected weight change.
HENT: Negative for ear pain, hearing loss, tinnitus and trouble swallowing.
Eyes: Negative. Negative for photophobia, pain and visual disturbance.
Respiratory: Positive for cough, nocturnal snoring
Cardiovascular: Negative for chest pain, palpitations and leg swelling.
Gastrointestinal: Positive for vomiting
Endocrine: Negative. Negative for cold intolerance.
Genitourinary: Negative for dysuria, flank pain and urgency.
Musculoskeletal: Negative for back pain, gait problem, neck pain and neck stiffness.
Skin: Negative for rash.
Allergic/Immunologic: Negative. Negative for immunocompromised state.
Neurological: Positive for right-sided incoordination, headache
Psychiatric/Behavioral: Negative for behavioral problems, confusion and hallucinations.
�
�
General: Well developed. In no acute distress.
Cardio: Regular rate and rhythm without murmur. Extremities are without cyanosis or edema.
Neuro:
Mental Status: Alert, oriented to person, place, and date.� Intermittent expressive aphasia (when anxious only) normal attention and recall.� Good fund of knowledge. Follows complex requests across the midline.� Comprehension, naming, and repetition
intact.� Immediate and delayed recall 3/3.
Cranial Nerves:� Pupils are equally round and reactive to light.� EOMs full.� Visual peña full to confrontation.� No ptosis.� No nystagmus.� V1-V3 intact to light touch and pinprick bilaterally, symmetric.� Face symmetric.� Normal hearing AU.� The
palate elevated well.� SCMs and traps 5/5.� Tongue midline.� No dysarthria.
Motor:� � � � Normal bulk and tone.� No pronator or arm drift.� Strength 5/5 throughout. No clonus.
Reflexes:� � � � � � Limited due to body habitus.
Sensory: � � Normal proprioception at the toes
Coordination: Mild right dysmetria no tremors, clinical
Gait: � � � � � deferred
Assessment and Plan:
�
�I. R cerebellar cystic mass. Differential diagnose with a mild mass effect on the fourth ventricle. Clinically worse due to concurrent medical illness.� Differential diagnosis includes ependymal vs hytatid cyst.
II. �R cerebellar developmental venous anomaly
III.� Headache with increased ICP
-Fall precautions
-Continue Topamax 25 mg twice daily with titration by 25 mg every 3-5 days as tolerated
-Please check magnesium, D-dimers, ESR, CRP, BLOSSOM
-Brain MRI with gale
-Outpatient sleep study
-Outpatient neurology at [facility] if no change on pending brain MRI.
I personally reviewed all radiology and labs along with past medical records pertinent to current medical problems. Total time spent in patient care is 35 minutes.
�
Objective Data
Vital Signs
Temp Pulse Resp BP Pulse Ox
36.8 C 75 14 121/74 95
05/04/23 11:00 05/04/23 11:43 05/04/23 11:43 05/04/23 11:00 05/04/23 11:43
Lab Results
05/04/23 06:00
05/04/23 06:00
Sodium 139 mmol/L (135-145) 05/04/23 06:00
Potassium 4.4 mmol/L (3.5-5.1) 05/04/23 06:00
BUN 15 mg/dl (7-17) 05/04/23 06:00
Glucose 104 mg/dl (70-99) H 05/04/23 06:00
Calcium 9.3 mg/dl (8.4-10.2) 05/04/23 06:00
Patient Allergies
morphine Allergy (Verified 05/03/23 17:50)
Itching
[2023-05-04 15:00] VITALS: BP 144/81
[2023-05-04 19:00] VITALS: BP 147/80
[2023-05-04] MEDS: NEURONTIN 300 MG PO (21:21)
[2023-05-04] MEDS: COZAAR 25 MG PO (21:21)
[2023-05-04] MEDS: CRESTOR 5 MG PO (21:21)
[2023-05-04 23:00] VITALS: BP 150/86
[2023-05-05] VITALS (8 sets, daily range): BP systolic 108–152; BP diastolic 67–92; PULSE 113; O2SAT 95
[2023-05-05] MEDS: TESSALON PERLES 100 MG PO ×2 (06:29→18:22)
[2023-05-05 07:09] LABS: ALT (SGPT) 95 U/L (0-35); AST (SGOT) 46 U/L (14-36); Albumin 3.8 g/dl (3.5-5.0); Alkaline Phosphatase 103 U/L (38-126); Blood Urea Nitrogen 15 mg/dl (7-17); Calcium 9.5 mg/dl (8.4-10.2); Carbon Dioxide 26 mmol/L (22-30); Chloride 104 mmol/L (98-107); Estimated Creatinine Clearance 103 ml/min; Glucose 109 mg/dl (70-99); Potassium 4.3 mmol/L (3.5-5.1); Sodium 140 mmol/L (135-145); Total Bilirubin 0.7 mg/dl (0.2-1.3); Total Protein 7.1 g/dl (6.3-8.2); eGFR > 60.00
[2023-05-05] MEDS: DUONEB 3 ML INH ×4 (07:23→19:29)
[2023-05-05] MEDS: DRISDOL (VITAMIN D2) 50000 UNITS PO (08:22)
[2023-05-05] MEDS: TOPAMAX 25 MG PO ×2 (08:23→20:03)
[2023-05-05] MEDS: MUCINEX 600 MG PO ×2 (08:23→20:03)
--- NOTE | 2023-05-05 09:17 | W.PN.HOSP.TC ---
Today's Communication/Plan
-
pertussis testing (if positive start azithromycin although patient near 3 weeks of symptoms)
consider
inhaled steroids
duonebs, mucinex, acapella
PT/OT
consider pulm consult tomorrow if no improvement in symptoms - patient requesting given on-going cough
Assessment / Plan
Assessment / Plan
62-year-old female past medical history of hypertension, recently diagnosed cystic mass in the right cerebellum in March 2023 presented to the emergency room for right-sided weakness and tremors in the right arm and leg over the past 4 days in
setting of recent URI.
MRI 05/03
IMPRESSION: In the superior, medial, and anterior right cerebellar hemisphere, spherical cystic mass with dependent fluid-fluid layer, and this mass has diameter 1.5 cm, with no evidence for enhancement. The size of this mass is unchanged from
previous MRI examination of April 03, 2023 with slight interval decrease in T1-weighted signal within the bulk of the mass.
Most likely, this represents a neural glial cyst. Differential considerations of hydatid cyst and ependymal cyst, which can have similar features.
Stable developmental venous anomaly within the posteromedial right cerebellum. On T2 gradient echo images, suggestion of an area of hemosiderin deposition from previous hemorrhage, unchanged from previous examination.
No new abnormality of the brain by MRI.
# Cystic lesion of right cerebellum with mild mass effect on the fourth ventricle
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
-CT scan on admit shows no evidence of intracranial hemorrhage, unchanged from prior imaging
-ER spoke with neurosurgery at [place] and patient is not at risk for hemorrhage and surgery would not be recommended
-Neurology following and recommended strict blood pressure control,
-Topamax 25 mg twice daily with up titration as tolerated
-Brain MRI repeated with finding 'size of mass unchanged from previous MRI examination'
-Obtain records from [facility] --> she will need outpatient follow up with her physicians
-PT/OT ordered
-F/U further neurology recommendations
#Recent upper respiratory infection with postviral cough/postnasal drip cough
-Completed 1 week course of Augmentin 05/02
-Chest x-ray negative
-COVID-negative, influenza negative
-*patient reports frequent bouts of URI's since December (saw benjamín December and January). She will have some improvement and then have return of URI symptoms. She has been on prednisone course, antibiotic courses. She recently completed
Augmentin as above. This current cough has now been going on for 3 weeks; cough severe enough to cause intermittent vomiting
-no wheezing on exam
-pertussis? will add on testing for pertussis. patient had TDap vaccine within last 5 years prior to of benjamín
-duonebs, mucinex, acapella - patient coughing up mucus
-start inhaled steroids
-*patient requests pulm consult; discussed that Pulmonlogist to be consulted by hospitalist tomorrow if no improvement in symptoms
-Continue benzonatate
# Transaminitis possibly secondary to Augmentin
-Continue to monitor
-improving
Essential hypertension
-Continue losartan (*this med was started after cough began)
Hypercholesterolemia
-Continue statin
Chronic neuropathy
-Continue gabapentin
Obesity
Full code
DVT prophylaxis SCDs
Regular diet
Anticipated Discharge: 24 - 48 hours
Subjective/Interval History
-
Date of Service: May 05, 2023
continues to have cough
weakness improving
she vomited from coughing this morning
Objective Data
-
Labs:
Laboratory Results
05/05/23
06:11
Sodium 140
Potassium 4.3
Chloride 104
Carbon Dioxide 26
BUN 15
Creatinine 0.9
Glucose 109 H
Calcium 9.5
Total Bilirubin 0.7
AST 46 H
ALT 95 H
Alkaline Phosphatase 103
Vital Signs:
Vital Signs
Temp Pulse Resp BP Pulse Ox
98.3 F 82 14 146/90 94
05/05/23 07:00 05/05/23 07:26 05/05/23 07:26 05/05/23 07:00 05/05/23 07:26
I&O
05/04/23 05/05/23 05/06/23
06:59 06:59 06:59
Intake Total 600 / 600 2640 / 2640 480 / 480
Balance 600 / 600 2640 / 2640 480 / 480
Review of Systems
-
History Source: Patient
All other systems: Reviewed and negative
Physical Exam
-
General: No Apparent Distress, Obese and Other (intermittent harsh cough )
HEENT: PERRLA
Respiratory: Clear to Auscultation; Negative Wheezes
Cardiac: Regular Rhythm and S1/S2
GI: Soft and Nontender
Musculoskeletal: No Edema
Skin: Warm and Dry; Negative Rash
Neuro: AO x 3
Psych: Calm
Data Reviewed
-
Diagnostic Radiology: Report Reviewed by me
Labs: Labs Reviewed by me
[2023-05-05] MEDS: PULMICORT 0.25 MG INH ×2 (11:08→19:29)
--- NOTE | 2023-05-05 13:47 | W.PN.UPDATE ---
Update Note
Progress Note Update
patient looked up her medical records
Since December she has been prescribed treatment with a course of Azithromycin, Bactrim and Augmentin. She has also been given 2 steroid courses.
[2023-05-05 13:58] LABS: Angiotensin-1-converting Enzym 45 U/L (16-85)
--- NOTE | 2023-05-05 18:00 | PTCARENOTE ---
Pt is alert and oriented x3. Very pleasant. Denies any pain. Tolerating diet well. 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 Pt makes own needs known. Pt states that her cough is getting better with the steroid inhaler/duoneb. VSS. Pt sitting in the chair for
dinner. Call piedra is within reach.
[2023-05-05] MEDS: COZAAR 25 MG PO (22:31)
[2023-05-05] MEDS: CRESTOR 5 MG PO (22:31)
[2023-05-05] MEDS: NEURONTIN 300 MG PO (22:31)
[2023-05-05] MEDS: TYLENOL 650 MG PO (22:34)
[2023-05-06 03:43] VITALS: BP 117/75
[2023-05-06 07:53] VITALS: BP 137/69
[2023-05-06] MEDS: TOPAMAX 25 MG PO ×2 (08:04→19:18)
[2023-05-06] MEDS: MUCINEX 600 MG PO (08:04)
[2023-05-06] MEDS: TESSALON PERLES 100 MG PO ×2 (08:04→19:21)
[2023-05-06] MEDS: PULMICORT 0.25 MG INH (08:28)
[2023-05-06] MEDS: DUONEB 3 ML INH ×3 (08:28→15:38)
[2023-05-06 11:13] VITALS: BP 107/70
--- NOTE | 2023-05-06 12:11 | W.PN.HOSP.TC ---
Today's Communication/Plan
-
Monitor vital signs see plan
Still with persistent cough, consult pulmonary
Increase Mucinex
Pulmonary evaluation
Assessment / Plan
Assessment / Plan
62-year-old female past medical history of hypertension, recently diagnosed cystic mass in the right cerebellum in March 2023 presented to the emergency room for right-sided weakness and tremors in the right arm and leg over the past 4 days in
setting of recent URI.
MRI 05/03
IMPRESSION: In the superior, medial, and anterior right cerebellar hemisphere, spherical cystic mass with dependent fluid-fluid layer, and this mass has diameter 1.5 cm, with no evidence for enhancement. The size of this mass is unchanged from
previous MRI examination of April 03, 2023 with slight interval decrease in T1-weighted signal within the bulk of the mass.
Most likely, this represents a neural glial cyst. Differential considerations of hydatid cyst and ependymal cyst, which can have similar features.
Stable developmental venous anomaly within the posteromedial right cerebellum. On T2 gradient echo images, suggestion of an area of hemosiderin deposition from previous hemorrhage, unchanged from previous examination.
No new abnormality of the brain by MRI.
# Cystic lesion of right cerebellum with mild mass effect on the fourth ventricle
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
-CT scan on admit shows no evidence of intracranial hemorrhage, unchanged from prior imaging
-ER spoke with neurosurgery at [facility] and patient is not at risk for hemorrhage and surgery would not be recommended
-Neurology following and recommended strict blood pressure control,
-Topamax 25 mg twice daily with up titration as tolerated
-Brain MRI repeated with finding 'size of mass unchanged from previous MRI examination'
-Obtain records from [facility] --> she will need outpatient follow up with her physicians
-PT/OT rec home health
-F/U further neurology recommendations
#Recent upper respiratory infection with postviral cough/postnasal drip cough
-Completed 1 week course of Augmentin 05/02
-Chest x-ray negative
-COVID-negative, influenza negative
-*patient reports frequent bouts of URI's since December (saw benjamín December and January). She will have some improvement and then have return of URI symptoms. She has been on prednisone course, antibiotic courses. She recently completed
Augmentin as above. This current cough has now been going on for 3 weeks; cough severe enough to cause intermittent vomiting
-no wheezing on exam
-pertussis? pertussis pending. patient had TDap vaccine within last 5 years prior to of benjamín
-duonebs, mucinex, acapella - appears dry cough
-start inhaled steroids
-Consult pulmonary
-Continue benzonatate
start PPI
Would benefit from sleep study outpatient
Consider CT chest if symptoms do not improve
# Transaminitis possibly secondary to Augmentin
-improving
Essential hypertension
-Continue losartan (*this med was started after cough began)
Morbid obesity suspect secondary to excess calories
Hypercholesterolemia
-Continue statin
Chronic neuropathy
-Continue gabapentin
Obesity
Full code
DVT prophylaxis SCDs
General: No Apparent Distress, Obese and Other (intermittent harsh cough )
HEENT: PERRLA
Respiratory: Clear to Auscultation; Negative Wheezes
Cardiac: Regular Rhythm and S1/S2
GI: Soft and Nontender
Musculoskeletal: No Edema
Skin: Warm and Dry; Negative Rash
Neuro: AO x 3
Psych: Calm
Anticipated Discharge: Within 24 hours
Subjective/Interval History
-
Date of Service: May 06, 2023
denies pain
Objective Data
-
Vital Signs:
Vital Signs
Temp Pulse Resp BP Pulse Ox
98.3 F 78 16 107/70 98
05/06/23 11:13 05/06/23 12:05 05/06/23 12:05 05/06/23 11:13 05/06/23 12:05
I&O
05/05/23 05/06/23 05/07/23
06:59 06:59 06:59
Intake Total 2640 / 2640 1680 / 1680
Balance 2640 / 2640 1680 / 1680
[2023-05-06] MEDS: TYLENOL 650 MG PO ×2 (12:22→19:21)
--- NOTE | 2023-05-06 12:46 | CM ---
CM met with pt at bedside
Lives with in one story home
Pt reports prior to last hospitalization (04/06) she was independent, worked from home, drove
DME - Has rolling walker and cane
Receiving services with [facility]
Denies SNF
Has ride home at d/c
PCP - Lyubov Alegria
Pharm - [facility]
Seen by PT/OT/Speech - recommending HH. Referral sent in care port to [facility] - to resume care at d/c
Plan - home with HH with [facility] when medically stable
--- NOTE | 2023-05-06 12:55 | CON.PUL ---
Consultation
Consultation Request
Date/Time Consultation Requested: 05/06/23
Date/Time Consultation Performed: 05/06/23
Performing Provider: Melanie
Reason for Consultation: Cough
Medical History
-
History of Present Illness:
Patient is a 62-year-old female past medical history of hypertension, recently diagnosed cystic mass in the right cerebellum in 03/2023 presented to the emergency room for right-sided weakness and tremors in the right arm and leg over the past 4
days. MRI showing stable findings.
Additionally, she has noted prior 2 weeks with ongoing flulike illness with congestion, nonproductive cough and fatigue.� She notes that since December she has had about 4-5 episodes of URIs lasting a period of time and prolonging her cough
complaints. She feels this past illness has lasted longer than usual. Has been treated in the past with abx and steroid courses which would initially help but cough would return.
COVID testing negative at home. No known history of lung disease in past, CXR without acute findings. She is a lifelong never smoker.
She has a history of SOFYA, but not on treatment with PAP. She has been told she has ongoing snoring, apnea, and nocturnal hypoxemia.
Past Medical History
Past Medical History: Other (see list below)
Social History
Tobacco: Non-smoker
Alcohol: None
Drug: None
Family History
Family History: Reviewed & Not Pertinent
Allergies / Home Medications
Allergies
Allergy/AdvReac Type Severity Reaction Status Date / Time
morphine Allergy Itching Verified 05/03/23 17:50
Home Medications
Medication Instructions Recorded Confirmed Last Taken Type
Probiotic 2 gummy PO DAILY probiotic 04/03/23 05/03/23 05/03/23 History
cholecalciferol (vitamin D3) 1,250 1,250 mcg PO SUTH@0800 Supplement 04/03/23 05/03/23 04/28/23 History
mcg (50,000 unit) capsule
acetaminophen 500 mg tablet 1,000 mg PO BIDPRN PRN headache 05/03/23 05/03/23 05/03/23 History
(Tylenol Extra Strength)
albuterol sulfate 90 mcg/actuation 2 puff inhalation R Q6HPRN PRN sob 05/03/23 05/03/23 05/03/23 History
aerosol inhaler
amoxicillin 875 mg-potassium 1 tab PO BID Infection 05/03/23 05/03/23 05/03/23 History
clavulanate 125 mg tablet
benzonatate 100 mg capsule 100 mg PO TID PRN cough 05/03/23 05/03/23 05/03/23 History
gabapentin 300 mg capsule 300 mg PO HS pain 05/03/23 05/03/23 05/02/23 History
losartan 25 mg tablet 25 mg PO HS Blood Pressure 05/03/23 05/03/23 05/02/23 History
rosuvastatin 5 mg tablet 5 mg PO HS high cholesterol 05/03/23 05/03/23 05/02/23 History
Review of Systems
-
History Source: Patient
All other systems: Negative unless noted
Vitals / Labs / Diagnostic Testing
Vital Signs
Temp Pulse Resp BP Pulse Ox
98.3 F 78 16 107/70 98
05/06/23 11:13 05/06/23 12:05 05/06/23 12:05 05/06/23 11:13 05/06/23 12:05
Lab Data
05/04/23 06:00
05/05/23 06:11
Microbiology
05/05/23 12:14 Nasalpharynx Bordetella pertussis DNA (PCR) - Final
Not Detected
05/05/23 12:14 Nasalpharynx Bordetella paraper/bronchiseptica - Final
Not Detected
05/05/23 12:14 Nasalpharynx Bordetella holmesii - Final
Not Detected
05/03/23 15:25 Nasal Swab Influenza Types A & B (BARBARA) - Final
Negative for Influenza A & B, NAAT
Negative results must be combined with clinical observations
and patient history.
Nucleic Acid Amplification test (NAAT)performed on the
[employer] platform.
Diagnostic Testing:
Physical Exam
-
HEENT: Normocephalic, Anicteric and Moist Mucous Membranes
Cardiovascular: S1/S2 and Regular Rhythm
Respiratory: Clear and Non-Labored Respirations
GI: Soft, Non Distended and Non Tender
Neurology: Awake, Alert, Oriented, AO x 3 and No Motor Deficits
Skin: Warm, Dry and Good Color
General: Comfortable and Other (NAD)
Assessment
-
Patient is a 62-year-old female past medical history of hypertension, recently diagnosed cystic mass in the right cerebellum in 03/2023 admitted for right-sided weakness and tremors in the right arm and leg over the past 4 days. MRI showing stable
findings. Additionally, she has noted prior 2 weeks with ongoing flulike illness with congestion, nonproductive cough and fatigue.� She notes that since December she has had about 4-5 episodes of URIs lasting a period of time and prolonging her
cough complaints. She feels this past illness has lasted longer than usual. Has been treated in the past with abx and steroid courses which would initially help but cough would return.
COVID testing negative at home. We are asked for eval.
Acute on chronic cough x 2 weeks
Chronic cough since December
Recent URI with postviral cough
PND history
Cystic lesion of right cerebellum with mild mass effect on the fourth ventricle new since mar 2023
SOFYA not on CPAP with nocturnal desaturations
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
History of�Acute calculous cholecystitis s/p laparoscopic cholecystectomy 08/25/21
Morbid obesity BMI 46
Diverticular disease� �
Anxiety/depression
Insulin resistance/prediabetes�
HTN
HLD
Chronic neuropathy
Open sigmoidectomy� �
s/p bilateral rotator cuff repair 2009� �
R meniscus tear repair 2009� �
Right Achilles Tendon Repair 2009� �
s/p tubal ligation� �
Plan
No oxygen was needed on admission, currently saturating >90% on RA
No known history of lung disease in past, she is a lifelong never smoker.
She has a history of SOFYA, but not on treatment with PAP. She has been told she has ongoing snoring, apnea, and nocturnal hypoxemia.
CXR without acute findings
Suspect Post viral cough complaints +/- asthma
Will obtain bedside rangel for eval and likely initiate Symbicort to take BID
Recently seen at [facility] for mass
Stable on MRI
Defer to neuro for next steps
Will need outpatient pulmonary evaluation in our office for PFTs and 6MWT
Risk factors assessed for underlying sleep disordered breathing also noted, recommend outpatient PSG/sleep evaluation
Will need repeat study and new set up, but can be done as OP
Reviewed with patient
Weight loss measures recommended
Obesity contributing to respiratory symptoms
Discharge planning per team likely in next 24 hours
We will follow
Diagnostic Data
Chest X-Ray: 05/03/23- No active cardiopulmonary disease.
CT Scan:
Brain MRI 05/04/23- In the superior, medial, and anterior right cerebellar hemisphere, spherical cystic mass with dependent fluid-fluid layer, and this mass has diameter 1.5 cm, with no evidence for enhancement. The size of this mass is unchanged
from previous MRI examination of April 03, 2023 with slight interval decrease in T1-weighted signal within the bulk of the mass. Most likely, this represents a neural glial cyst. Differential considerations of hydatid cyst and ependymal cyst,
which can have similar features. Stable developmental venous anomaly within the posteromedial right cerebellum. On T2 gradient echo images, suggestion of an area of hemosiderin deposition from previous hemorrhage, unchanged from previous
examination. No new abnormality of the brain by MRI.
Echo:
PFT's:
Reports and relevant images were personally reviewed.
[2023-05-06] MEDS: PROTONIX 40 MG PO (14:26)
[2023-05-06 15:34] VITALS: BP 120/74
[2023-05-06 19:06] LABS: Hepatitis C Antibody Negative (Negative)
[2023-05-06] MEDS: MUCINEX 1200 MG PO (19:18)
[2023-05-06] MEDS: SYMBICORT 160/4.5 MCG INHALER 2 PUFF INH (19:41)
[2023-05-06] MEDS: CRESTOR 5 MG PO (22:18)
[2023-05-06] MEDS: NEURONTIN 300 MG PO (22:18)
[2023-05-06] MEDS: COZAAR 25 MG PO (22:18)
[2023-05-06 23:10] VITALS: BP 132/81
[2023-05-07] MEDS: ProAIR HFA INHALER 2 PUFF INH (06:28)
[2023-05-07 06:35] LABS: % Basophils 0.9 % (0-2); % Eosinophils 5.8 % (0-6); % Immature Granulocytes 0.3 % (0-0.5); % Lymphocytes 46.5 % (20.5-51.1); % Monocytes 9.7 % (1.7-9.3); % Neutrophils 36.8 % (42.2-75.2); Absolute Basophils 0.1 10^3/uL (0-0.2); Absolute Eosinophils 0.4 10^3/uL (0-0.7); Absolute Lymphocytes 3.2 10^3/uL (1.2-3.4); Absolute Monocytes 0.7 10^3/uL (0.1-0.6); Absolute Neutrophils 2.6 10^3/uL (1.4-6.5); Hematocrit 38.9 % (37.0-47.0); Hemoglobin 12.1 g/dL (12.0-16.0); Mean Corp Hgb Conc. 31.1 g/dL (33.0-37.0); Mean Corpuscular Hgb 27.8 pg (27.0-31.0); Mean Corpuscular Volume 89.4 fL (81.0-99.0); Mean Platelet Volume 10.8 fL (7.4-10.4); Nucleated Red Blood Cells % 0 %; Platelet Count 228 10^3/uL (130-400); Red Blood Cell Count 4.35 10^6/uL (4.20-5.40); Red Cell Dist. Width 13.3 % (11.5-14.5); White Blood Cell Count 6.9 10^3/uL (4.8-10.8)
[2023-05-07 06:58] LABS: ALT (SGPT) 64 U/L (0-35); AST (SGOT) 30 U/L (14-36); Alkaline Phosphatase 99 U/L (38-126); Blood Urea Nitrogen 16 mg/dl (7-17); Calcium 9.6 mg/dl (8.4-10.2); Carbon Dioxide 24 mmol/L (22-30); Chloride 109 mmol/L (98-107); Estimated Creatinine Clearance 93 ml/min; Glucose 109 mg/dl (70-99); Potassium 4.2 mmol/L (3.5-5.1); Sodium 139 mmol/L (135-145); Total Bilirubin 0.7 mg/dl (0.2-1.3); Total Protein 7.2 g/dl (6.3-8.2); eGFR > 60.00
[2023-05-07 07:00] VITALS: BP 136/74
[2023-05-07] MEDS: TOPAMAX 25 MG PO (07:42)
[2023-05-07] MEDS: MUCINEX 1200 MG PO (07:42)
[2023-05-07] MEDS: PROTONIX 40 MG PO (07:42)
[2023-05-07] MEDS: TESSALON PERLES 100 MG PO (07:43)
[2023-05-07] MEDS: SYMBICORT 160/4.5 MCG INHALER 2 PUFF INH (08:44)
--- NOTE | 2023-05-07 09:11 | W.PN.PUL3 ---
Today's Communication / Plan
-
Symbicort BID, continue at discharge [facility] rescue PRN
Rangel reviewed
Outpatient pulmonary/sleep FU reviewed [facility] patient
Discharge planning per team
Assessment
-
Patient is a 62-year-old female past medical history of hypertension, recently diagnosed cystic mass in the right cerebellum in 03/2023 admitted for right-sided weakness and tremors in the right arm and leg over the past 4 days. MRI showing stable
findings. Additionally, she has noted prior 2 weeks with ongoing flulike illness with congestion, nonproductive cough and fatigue.� She notes that since December she has had about 4-5 episodes of URIs lasting a period of time and prolonging her
cough complaints. She feels this past illness has lasted longer than usual. Has been treated in the past with abx and steroid courses which would initially help but cough would return.
COVID testing negative at home. We are asked for eval.
Acute on chronic cough x 2 weeks
Chronic cough since December
Recent URI with postviral cough
PND history
Cystic lesion of right cerebellum with mild mass effect on the fourth ventricle new since mar 2023
SOFYA not on CPAP with nocturnal desaturations
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
History of�Acute calculous cholecystitis s/p laparoscopic cholecystectomy 08/25/21
Morbid obesity BMI 46
Diverticular disease� �
Anxiety/depression
Insulin resistance/prediabetes�
HTN
HLD
Chronic neuropathy
Open sigmoidectomy� �
s/p bilateral rotator cuff repair 2009� �
R meniscus tear repair 2009� �
Right Achilles Tendon Repair 2009� �
s/p tubal ligation� �
Plan
No oxygen was needed on admission, currently saturating >90% on RA
No known history of lung disease in past, she is a lifelong never smoker.
She has a history of SOFYA, but not on treatment with PAP. She has been told she has ongoing snoring, apnea, and nocturnal hypoxemia.
CXR without acute findings
Suspect Post viral cough complaints +/- asthma
Will obtain bedside rangel for eval
Rangel reviewed, best effort was normal. Other efforts showing possible obstruction
Reviewed with patient
Initiated Symbicort -- feels better with treatment, can continue as OP
Recently seen at [facility] for mass
Stable on MRI
Defer to neuro for next steps
Will need outpatient pulmonary evaluation in our office for PFTs and 6MWT
Risk factors assessed for underlying sleep disordered breathing also noted, recommend outpatient PSG/sleep evaluation
Will need repeat study and new set up, but can be done as OP
Reviewed with patient
Weight loss measures recommended
Obesity contributing to respiratory symptoms
Discharge planning per team
Outpatient pulmonary FU discussed again today
Diagnostic Data
Chest X-Ray: 05/03/23- No active cardiopulmonary disease.
CT Scan:
Brain MRI 05/04/23- In the superior, medial, and anterior right cerebellar hemisphere, spherical cystic mass with dependent fluid-fluid layer, and this mass has diameter 1.5 cm, with no evidence for enhancement. The size of this mass is unchanged
from previous MRI examination of April 03, 2023 with slight interval decrease in T1-weighted signal within the bulk of the mass. Most likely, this represents a neural glial cyst. Differential considerations of hydatid cyst and ependymal cyst,
which can have similar features. Stable developmental venous anomaly within the posteromedial right cerebellum. On T2 gradient echo images, suggestion of an area of hemosiderin deposition from previous hemorrhage, unchanged from previous
examination. No new abnormality of the brain by MRI.
Echo:
PFT's:
Reports and relevant images were personally reviewed.
Subjective Data
-
Date of Service:
Date of Service: May 07, 2023
Chief Complaint: Pulmonary Follow Up
Subjective:
patient seen and examined, no acute events on
feels better since on inhalers
wants to go home
Objective Data
Data Reviewed
Vital Signs / I&O / Oxygen:
Vital Signs
Temp Pulse Resp BP Pulse Ox
97.8 F 82 18 136/74 98
05/07/23 07:00 05/07/23 08:46 05/07/23 08:46 05/07/23 07:00 05/07/23 08:46
Intake and Output
05/06/23 05/07/23 05/08/23
06:59 06:59 06:59
Intake Total 1680 / 1680 1620 / 1620
Balance 1680 / 1680 1620 / 1620
SaO2 98
Physical Exam
General: Comfortable and Other (NAD)
HEENT: Normocephalic, Anicteric and Moist Mucous Membranes
Cardiovascular: S1-S2 and Regular Rhythm
Respiratory: Clear and Non-Labored Respirations
GI: Soft, Non Distended and Non Tender
Neurology: Awake, Alert, Oriented, AO x 3 and No Motor Deficits
Skin: Warm, Dry and Good Color
Labs/Micro/Reports
Lab Data
05/07/23 05:56
05/07/23 05:56
Microbiology
05/05/23 12:14 Nasalpharynx Bordetella pertussis DNA (PCR) - Final
Not Detected
05/05/23 12:14 Nasalpharynx Bordetella paraper/bronchiseptica - Final
Not Detected
05/05/23 12:14 Nasalpharynx Bordetella holmesii - Final
Not Detected
--- NOTE | 2023-05-07 11:06 | W.PN.HOSP.TC ---
Today's Communication/Plan
-
monitor vitals
see plan
cw symbicort on dc per pulm
dc home
time of discharge 37minutes
Assessment / Plan
Assessment / Plan
62-year-old female past medical history of hypertension, recently diagnosed cystic mass in the right cerebellum in March 2023 presented to the emergency room for right-sided weakness and tremors in the right arm and leg over the past 4 days in
setting of recent URI.
MRI 05/03
IMPRESSION: In the superior, medial, and anterior right cerebellar hemisphere, spherical cystic mass with dependent fluid-fluid layer, and this mass has diameter 1.5 cm, with no evidence for enhancement. The size of this mass is unchanged from
previous MRI examination of April 03, 2023 with slight interval decrease in T1-weighted signal within the bulk of the mass.
Most likely, this represents a neural glial cyst. Differential considerations of hydatid cyst and ependymal cyst, which can have similar features.
Stable developmental venous anomaly within the posteromedial right cerebellum. On T2 gradient echo images, suggestion of an area of hemosiderin deposition from previous hemorrhage, unchanged from previous examination.
No new abnormality of the brain by MRI.
# Cystic lesion of right cerebellum with mild mass effect on the fourth ventricle
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
-CT scan on admit shows no evidence of intracranial hemorrhage, unchanged from prior imaging
-ER spoke with neurosurgery at [facility] and patient is not at risk for hemorrhage and surgery would not be recommended
-Neurology following and recommended strict blood pressure control,
-Topamax 25 mg twice daily with up titration as tolerated
-Brain MRI repeated with finding 'size of mass unchanged from previous MRI examination'
-Obtain records from [facility] --> she will need outpatient follow up with her physicians
-PT/OT rec home health
-F/U further neurology recommendations
#Recent upper respiratory infection with postviral cough/postnasal drip cough
-Completed 1 week course of Augmentin 05/02
-Chest x-ray negative
-COVID-negative, influenza negative
-*patient reports frequent bouts of URI's since December (saw benjamín December and January). She will have some improvement and then have return of URI symptoms. She has been on prednisone course, antibiotic courses. She recently completed
Augmentin as above. This current cough has now been going on for 3 weeks; cough severe enough to cause intermittent vomiting
-no wheezing on exam
-pertussis? pertussis pending. patient had TDap vaccine within last 5 years prior to of benjamín
-duonebs, mucinex, acapella - appears dry cough
-pulmonary following; bedside rangel; started symbicort. Patient to follow-up with pulmonary outpatient
-Continue benzonatate
start PPI
Would benefit from sleep study outpatient
Consider CT chest if symptoms do not improve
# Transaminitis possibly secondary to Augmentin
-improving
Essential hypertension
-Continue losartan (*this med was started after cough began)
Morbid obesity suspect secondary to excess calories
Hypercholesterolemia
-Continue statin
Chronic neuropathy
-Continue gabapentin
Obesity
Full code
DVT prophylaxis SCDs
General: No Apparent Distress, Obese and Other (intermittent harsh cough )
HEENT: PERRLA
Respiratory: Clear to Auscultation; Negative Wheezes
Cardiac: Regular Rhythm and S1/S2
GI: Soft and Nontender
Musculoskeletal: No Edema
Skin: Warm and Dry; Negative Rash
Neuro: AO x 3
Psych: Calm
Anticipated Discharge: Today
Subjective/Interval History
-
Date of Service: May 07, 2023
denies pain
Objective Data
-
Labs:
Laboratory Results
05/07/23
05:56
WBC 6.9
Hgb 12.1
Hct 38.9
Plt Count 228
Sodium 139
Potassium 4.2
Chloride 109 H
Carbon Dioxide 24
BUN 16
Creatinine 1.0
Glucose 109 H
Calcium 9.6
Total Bilirubin 0.7
AST 30
ALT 64 H
Alkaline Phosphatase 99
Vital Signs:
Vital Signs
Temp Pulse Resp BP Pulse Ox
97.8 F 82 18 136/74 98
05/07/23 07:00 05/07/23 08:46 05/07/23 08:46 05/07/23 07:00 05/07/23 08:46
I&O
05/06/23 05/07/23 05/08/23
06:59 06:59 06:59
Intake Total 1680 / 1680 1620 / 1620
Balance 1680 / 1680 1620 / 1620
--- NOTE | 2023-05-07 11:16 | W.DCSUMMARY ---
Discharge Summary
Discharge Data
Date of Admission: 05/03/23
Date of Discharge: 05/07/23
-
Pending Results: Yes
Hospital Course
62-year-old female with past medical history of hypertension, recently diagnosed cystic mass in the right cerebellum, morbid obesity, hyperlipidemia, chronic neuropathy came to the hospital with change in mental status which was likely thought was
secondary to recent upper respiratory infection. Given patient recent cystic lesion neurology was also consulted who started patient on Topamax. MRI was done which showed cystic mass is unchanged. Patient was instructed to follow-up with his
physician at [facility] outpatient. Patient also had persistent cough for which she was seen by pulmonary. Patient had bedside spirometry done on this hospitalization. Patient symptoms improved after she was started on Symbicort. Pulmonary
instructed patient to follow-up with them closely outpatient. Patient also had a pertussis test done which was pending prior to discharge. Once patient symptoms started to improve, she was then discharged home with instructions to follow-up with
all her physicians outpatient.
Discharge Plan
-
Patient Disposition: Home (Routine Discharge)
Discharge Diagnosis/Procedures: Acute on chronic cough
Upper respiratory infection
Transaminitis
Suspect obstructive lung disease
Diet: As tolerated
Driving Restrictions: As prior to admission
Bathing Restrictions: None
Activity Restrictions/Additional Instructions:
Follow-up with your physician at [facility]
Referrals:
Lyubov Alegria MD [Family Provider] - in less than 1 week
Katerine Navarro DO [Active] - (2-3 weeks, PFTs/6MWT, sleep study)
Prescriptions:
New
guaifenesin 600 mg Tablet Extended Release 12hr
1,200 mg PO Q12 Qty: 28 0RF
topiramate 25 mg Tablet
25 mg PO BID Qty: 60 0RF
pantoprazole 40 mg Tablet,Delayed Release (Dr/Ec)
40 mg PO DAILY Qty: 30 0RF
budesonide-formoterol [Symbicort] 160-4.5 mcg/actuation Hfa Aerosol Inhaler
2 puff inhalation R BID Qty: 10.2 0RF
Continued
cholecalciferol (vitamin D3) 1,250 mcg (50,000 unit) capsule
1,250 mcg PO SUTH@0800
Probiotic
2 gummy PO DAILY
acetaminophen [Tylenol Extra Strength] 500 mg Tablet
1,000 mg PO BIDPRN PRN (Reason: headache)
benzonatate 100 mg Capsule
100 mg PO TID PRN (Reason: cough)
losartan 25 mg Tablet
25 mg PO HS
gabapentin 300 mg Capsule
300 mg PO HS
albuterol sulfate 90 mcg/actuation Hfa Aerosol Inhaler
2 puff INHALATION R Q6HPRN PRN (Reason: sob)
rosuvastatin 5 mg Tablet
5 mg PO HS
Discontinued
amoxicillin-pot clavulanate 875-125 mg Tablet
1 tab PO BID
Patient Comments:
05/03/2023, pt. filled this med. on 04/26/2023 and is instructed to take one tablet BID for 7 days; pt. took last dose of this abx this morning and completed this treatment.
Discharge Orders:
Discharge Patient (As Directed); Ordered 05/07/23
Ordered By: Chilo Jacobs
Discharge Date and Time
Discharge Date/Time: 05/07/23 13:03
--- NOTE | 2023-05-07 11:34 | CM ---
Pt for d/c today
will transport home
Plan - home with HH with [facility]
Fax - [phone]
[2023-05-07 11:43] VITALS: BP 149/77
[2023-05-07 14:49] LABS: Bordetella Pertussis Ab, IgA 0.9 IV (<=1.1); Bordetella Pertussis Ab, IgG 2.74 IV (<=1.04); Bordetella Pertussis Ab, IgM 0.3 IV (<=1.1)
[2023-05-08 04:57] LABS: B. Pertussis, IgG IB FHA Positive; B. Pertussis, IgG IB PT Positive; B. Pertussis, IgG IB PT100 Equivocal
== END 2023-05-07 13:03 | disposition home health service (06) | DRG 91 ==
LOC: 3 WEST ACU 19:10
PROVIDERS: Student in an Organized Health Care Education/Training Program; ADMITTING PHYSICIAN Hospitalist; ATTENDING PHYSICIAN Internal Medicine; CONSULT PHYSICIAN Internal Medicine; CONSULT PHYSICIAN Psychiatry & Neurology Neurology; EMERGENCY PHYSICIAN Emergency Medicine; FAMILY PHYSICIAN Emergency Medicine
DX: G93.0 Cerebral cysts (principal); Q28.3 Other malformations of cerebral vessels; K80.00 Calculus of gallbladder with acute cholecystitis without obstruction; Z68.42 Body mass index [BMI] 45.0-49.9, adult; R05.3 Chronic cough; Z11.52 Encounter for screening for COVID-19; G93.2 Benign intracranial hypertension; I10 Essential (primary) hypertension; E78.00 Pure hypercholesterolemia, unspecified; G62.9 Polyneuropathy, unspecified; Z90.49 Acquired absence of other specified parts of digestive tract; E66.01 Morbid (severe) obesity due to excess calories
CPT/HCPCS: 70450; 70553; 71045; 80053; 82164; 83735; 85025; 85379; 85652; 86140; 86615; 86803; 87502; 87798; 87811; 94060; 94640; 96361; 96374; 97162; 97166; 99285; A9575

== ENCOUNTER → 2023-06-03 | Outpatient (REF) | payer OTHER, SELFPAY | LOC: DHSLP | PROVIDERS: ATTENDING PHYSICIAN Internal Medicine; FAMILY PHYSICIAN Nurse Practitioner Family | DX: R06.83 Snoring (principal) | CPT/HCPCS: 95800 ==

== ENCOUNTER 2023-06-06 19:05 | Emergency (ER) | payer OTHER, SELFPAY ==
[2023-06-06 19:08] VITALS: BP 159/103
[2023-06-06 19:29] VITALS: BP 158/93
[2023-06-06 19:40] VITALS: BMI 45.3
--- NOTE | 2023-06-06 20:07 | ED.CVA ---
History of Present Illness
General
Chief Complaint: CVA/TIA Symptoms
Source: patient
Exam Limitations: none
Time Seen by Provider: 06/06/23 19:42
Nursing documentation reviewed up to this point in time: agreed with
Onset of Stroke Symptoms
Onset of symptoms known: Yes
Date of onset of symptoms: 06/04/23
Travel History
Have you had any contact with someone who has COVID-19?: No
Do you have any symptoms of coronavirus? Fever > 100 degrees, chills, cough, shortness of breath, sore throat, loss of taste or smell, muscle aches, or headache?: No
History of Present Illness
History of Present Illness:
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
walking, and right-sided weakness. Patient has had similar symptoms in the past, and is being treated with physical therapy as an outpatient. However, her symptoms quickly worsened over the past 2 days. Denies fever or chills. Denies vomiting.
Denies difficulty with swallowing. Denies coughing. Denies recent change in medications or diet. Patient does not take any blood thinning medications.
Past History
Past History
ED Past Medical History: Other
ED Past Surgical History: Gynecological
Review of Systems
Review of Systems
Allergies reviewed?: Yes
All Other Systems: ROS reviewed and negative except as documented in HPI and ROS
Constitutional: Reports no symptoms
EENT: Reports no symptoms
Respiratory: Reports no symptoms
Cardiac: Reports no symptoms
ABD/GI: Reports no symptoms; Denies vomiting
: Reports no symptoms
Musculoskeletal: Reports no symptoms
Skin: Reports no symptoms
Neurological: Reports dizzy, headache and other (ataxia, slurred speech, blurred vision)
Phy Exam
Physical Exam
Physical Exam:
Physical Exam
General: mild distress, not acutely ill. afebrile
Head: nc/at. eomi
Neck: supple. no meningeal signs.
Heart: s1/s2 regular rate and rhythm, no murmur. equal radial pulses.
Lungs: no acute respiratory distress. clear bilaterally
Abdomen: normal bowel sounds. not tender
Neuro: alert and oriented. no focal sensory/motor deficits. slurred speech noted.
Skin: no rash
Psychiatric: well kept. interactive and cooperative
Extremities: no edema. no calf tenderness.
Scores
NIH Stroke Score
Level of Consciousness: 0 - Alert
LOC Questions: 0-Answers both correctly
LOC Commands: 0-Performs both correctly
Best Horizontal Gaze: 0-Normal
Visual [place]: 0=Normal, no visual loss
Facial Palsy: 0=Normal, symmetrical
Motor - Right Arm: 0=No drift 10 seconds
Motor - Left Arm: 0=No drift 10 seconds
Motor - Right Le-Partial vs. gravity
Motor - Left Le-No drift 5 seconds
Limb Ataxia: 1-Present in one limb
Sensation: 0-Normal
Best Language: 0-No aphasia
Dysarthria: 1-Mild slurring
Extinction and Inattention: 0-No abnormality
Total Score:: 4
Course
Orders/Labs/Results
Orders:
Orders
06/06/23 19:42
Electrocardiogram (*1) Urgent
Reason for Study: TIA/Stroke
CT Head W/o Iv Contrast Urgent
Comment:
Reason For Exam: ataxia
EKG- Treatment ONCE
06/06/23 20:12
Basic Metabolic Panel Urgent
Complete Blood Count/No Diff Urgent
Magnesium Urgent
06/06/23 20:13
PTT Urgent
Prothrombin Time Urgent
06/06/23 20:22
HYDROmorphone [Dilaudid] 0.5 mg IV NOW STA
Ondansetron Injectable [Zofran] 4 mg IV NOW STA
06/06/23 20:52
Type+Screen Urgent
Abnormal Lab Results
06/06/23
20:12
MCHC 32.0 L g/dL
(33.0-37.0)
MPV 10.6 H fL
(7.4-10.4)
BUN 24 H mg/dl
(7-17)
Creatinine 1.1 H mg/dL
(0.6-1.0)
Glucose 118 H mg/dl
(70-99)
Calcium 10.7 H mg/dl
(8.4-10.2)
06/06/23 20:12
06/06/23 20:12
Vital Signs
Initial and Last Documented VS:
Initial Vital Signs
Temp Pulse Resp BP Pulse Ox
99.2 F 107 19 159/103 96
06/06/23 19:08 06/06/23 19:08 06/06/23 19:08 06/06/23 19:08 06/06/23 19:08
Last Documented Vital Signs
Temp Pulse Resp BP Pulse Ox
99.2 F 84 17 130/73 92
06/06/23 19:08 06/06/23 21:30 06/06/23 21:30 06/06/23 21:00 06/06/23 21:00
MDM/Problems Addressed
Differential Diagnosis Includes:
CT report reviewed and discussed with (neurosx @ [facility]) who agreed to accept transfer.
Transfer consent on the chart.
Pt remains hemodynamically stable without any worsening neurological symptoms during observation
MDM/Problems Addressed:
CT report
*Critical Care Note
Total Time (30-74mins, 75-104mins- exclusive of procedures): Not Applicable
ED Attending Note
-
Portions of this chart may have been created with voice recognition software.� Occasional wrong word or��sound alike� substitutions may have occurred due to the inherent limitations of voice recognition software.
Discharge Plan
Departure
Patient Disposition: Acute Care Hospital
Date of Disposition: 06/06/23
Time of Disposition: 20:34
Discharge Problem:
Intraparenchymal hematoma of brain
Prescriptions:
No Action
cholecalciferol (vitamin D3) 1,250 mcg (50,000 unit) capsule
1,250 mcg PO SUTH@0800
Probiotic
2 gummy PO DAILY
Patient Comments:
06/06/2023, 800 million CFU.
acetaminophen [Tylenol Extra Strength] 500 mg Tablet
1,000 mg PO BIDPRN PRN (Reason: headache)
losartan 25 mg Tablet
25 mg PO HS
gabapentin 300 mg Capsule
600 mg PO HS
rosuvastatin 5 mg Tablet
5 mg PO HS
fluticasone propionate [Flonase] 50 mcg/actuation [place],Suspension
2 spray INTRANASAL QPM
guaifenesin 1,200 mg Tablet Extended Release 12hr
1,200 mg PO [id number] PRN (Reason: cough/congestion)
fluticasone furoate-vilanterol [Breo Ellipta] 100-25 mcg/dose Blister With Device
1 inh INHALATION R QPM
topiramate 25 mg tablet
25 mg PO BID PRN (Reason: headache)
Air Shield Immune Support
2 gummy PO DAILY
Hospital Transfer
Other hospital: [facility]
I certify that the patient requires transfer: Yes
Discussed case with accepting physician:
Reason for transfer: higher level of care, medical necessity, availability of service and specialties available
Interventions
Interventions:
*Risk Screen - Suicide Last Done: 06/06/23 19:08
*General Assessment Last Done: 06/06/23 19:08
*Neglect/Abuse Screening Last Done: 06/06/23 19:08
ED- Fall Risk Assessment Last Done: 06/06/23 19:43
*ED COVID-19 Vaccine History Last Done: 06/06/23 19:08
*Nursing Disposition Last Done: 06/06/23 21:44
ED- Pulmonary Assessment Last Done: 06/06/23 19:43
ED- Neurological Assessment Last Done: 06/06/23 19:45
ED- Cardiac Assessment Last Done: 06/06/23 19:43
ED Swallowing Screen Last Done: 06/06/23 19:45
Discharge Date and Time
Discharge Date/Time: 06/06/23 21:45
Print Language: SLOVENIAN
[2023-06-06 20:18] LABS: Hematocrit 41.2 % (37.0-47.0); Hemoglobin 13.2 g/dL (12.0-16.0); Mean Corpuscular Hgb 28.3 pg (27.0-31.0); Mean Corpuscular Volume 88.4 fL (81.0-99.0); Mean Platelet Volume 10.6 fL (7.4-10.4); Platelet Count 249 10^3/uL (130-400); Red Blood Cell Count 4.66 10^6/uL (4.20-5.40); Red Cell Dist. Width 12.8 % (11.5-14.5); White Blood Cell Count 7.8 10^3/uL (4.8-10.8)
[2023-06-06] MEDS: DILAUDID 0.5 MG IV (20:25)
[2023-06-06] MEDS: ZOFRAN 4 MG IV (20:27)
[2023-06-06 20:53] LABS: APTT 30.7 Sec (23.4-35.0); INR 1.06; PT 13.8 Sec (11.4-14.6)
[2023-06-06 21:00] VITALS: BP 130/73
[2023-06-06 21:07] LABS: Blood Urea Nitrogen 24 mg/dl (7-17); Calcium 10.7 mg/dl (8.4-10.2); Carbon Dioxide 25 mmol/L (22-30); Chloride 102 mmol/L (98-107); Estimated Creatinine Clearance 84 ml/min; Glucose 118 mg/dl (70-99); Magnesium 2.1 mg/dl (1.6-2.3); Potassium 4.7 mmol/L (3.5-5.1); Sodium 137 mmol/L (135-145); eGFR 56.46
== END 2023-06-06 21:45 | disposition short-term general hospital (02) ==
LOC: EMR 19:05
PROVIDERS: EMERGENCY PHYSICIAN Emergency Medicine; FAMILY PHYSICIAN Emergency Medicine
DX: I61.4 Nontraumatic intracerebral hemorrhage in cerebellum (principal)
CPT/HCPCS: 99285; 96374; 96375; 70450; 80048; 83735; 85027; 85610; 85730; 86850; 86900; 86901; 93005

== ENCOUNTER → 2023-09-16 12:50 | Outpatient (REF) | payer OTHER, SELFPAY | LOC: RAD 12:50 | PROVIDERS: ATTENDING PHYSICIAN Obstetrics & Gynecology; FAMILY PHYSICIAN Emergency Medicine | DX: N31.9 Neuromuscular dysfunction of bladder, unspecified (principal); N32.81 Overactive bladder; N39.46 Mixed incontinence | CPT/HCPCS: 76770 ==

== ENCOUNTER → 2024-05-01 14:03 | Outpatient (REF) | payer OTHER, SELFPAY | LOC: WDC 14:03 | PROVIDERS: ATTENDING PHYSICIAN Emergency Medicine | DX: Z13.820 Encounter for screening for osteoporosis (principal); Z12.31 Encounter for screening mammogram for malignant neoplasm of breast | CPT/HCPCS: 77063; 77067; 77080 ==

== ENCOUNTER → 2024-05-18 08:42 | Outpatient (REF) | payer OTHER, SELFPAY | LOC: WDC 08:42 | PROVIDERS: ATTENDING PHYSICIAN Emergency Medicine | DX: R92.8 Other abnormal and inconclusive findings on diagnostic imaging of breast (principal) | CPT/HCPCS: 76642 ==

== ENCOUNTER → 2024-09-18 10:23 | Outpatient (REF) | payer OTHER, SELFPAY | LOC: RAD 10:23 | PROVIDERS: ATTENDING PHYSICIAN Physician Assistant; FAMILY PHYSICIAN Emergency Medicine | DX: N31.9 Neuromuscular dysfunction of bladder, unspecified (principal) | CPT/HCPCS: 76770 ==

== ENCOUNTER → 2024-11-09 07:32 | Outpatient (REF) | payer OTHER, SELFPAY | LOC: MRI 07:32 | PROVIDERS: ATTENDING PHYSICIAN Emergency Medicine; OTHER PHYSICIAN Psychiatry & Neurology Neurology; REFERRING PHYSICIAN Neurological Surgery | DX: R27.0 Ataxia, unspecified (principal); R27.8 Other lack of coordination; R25.1 Tremor, unspecified; Z86.73 Personal history of transient ischemic attack (TIA), and cerebral infarction without residual deficits | CPT/HCPCS: 70553; 72156; A9585 ==